=== PATIENT | male | born 1970 | race Caucasian/White ===

== ENCOUNTER 2021-03-06 08:00 | Outpatient (CLI) | payer BC ==
--- NOTE | 2021-03-06 17:28 | XRAY Report ---
PROCEDURE: Finger(s) LT INDICATIONS: LEFT MIDDLE FINGER INJURY TECHNIQUE: AP hand, 3 views of the left third finger(s) acquired. COMPARISON: None FINDINGS: Bones: No fractures or dislocations. No suspicious bony lesions. Third DIP joint is held in flexio n. Soft tissues: No suspicious soft tissue calcifications. IMPRESSION: 1. No fracture. No osseous lesion. If there are persistent symptoms or continued clinical concern for pathology, then repeat plain film radiographs (7-10 days) or advanced imaging (CT, MR, bone scan) sh ould be considered for further evaluation. 2. Left third DIP joint held in flexion. Ligamentous injury cannot be excluded. Reviewed by: Makayla Anne MD, PhD on 03/06/2021 5:26 PM PDT Approved by: Makayla Anne MD, PhD on 03/06/2021 5:26 PM PDT Station ID: [id number]
== END 2021-03-06 23:59 | disposition home or self-care (01) ==
LOC: DI.N 08:00
PROVIDERS: ATTEND Physician Assistant Medical
DX: S69.92XA Unspecified injury of left wrist, hand and finger(s), initial encounter (principal)